=== PATIENT | female | born 1990 | race Caucasian/White ===

== ENCOUNTER → 2016-11-16 | Outpatient (CLI) | payer OTHER ==
[~2016-11-16] MED LIST: BCPILLS PO; ONDA4TAB10 SL
[2016-11-18 15:25] LABS: CHLAMYDIA TRACH RNA*** NOT DETECTED (NOT DETECTED); GC (NEIS GONORRHOEAE)RNA** NOT DETECTED (NOT DETECTED)
== END | disposition home or self-care (01) ==
LOC: C.LABSPEC 11:29
PROVIDERS: ATTEND Physician Assistant
DX: Z11.3 Encounter for screening for infections with a predominantly sexual mode of transmission (principal)

== ENCOUNTER → 2016-11-16 | Outpatient (CLI) | payer OTHER | END | disposition home or self-care (01) | LOC: C.PAPS 08:23 | PROVIDERS: ATTEND Physician Assistant | DX: Z01.419 Encounter for gynecological examination (general) (routine) without abnormal findings (principal) ==

== ENCOUNTER → 2017-10-18 | Outpatient (CLI) | payer OTHER ==
[~2017-10-18] MED LIST changes: -ONDA4TAB10 SL
[2017-10-18 10:47] LABS: BASO % 0.4 %; BASO ABS # 0.04 K/uL (0-0.2); EOS % 1.1 %; EOS ABS # 0.11 K/uL (0-0.5); HEMATOCRIT 41.9 % (37-47); HEMOGLOBIN 13.8 g/dL (12.0-16.0); IG# 0.01 K/uL (0.00-0.02); LYMPH % 38.4 %; MEAN CELL VOLUME 86.4 fL (80-100); MEAN CORPUSCULAR HEMOGLOBIN 28.5 pg (25-34); MEAN CORPUSCULAR HGB CONC 32.9 g/dl (32-36); MEAN PLATELET VOLUME 11.2 fL (7.4-10.4); MONO % 6.5 %; MONO ABS # 0.63 K/uL (0.11-0.59); NEUT % 53.5 %; NEUT ABS # 5.14 K/uL (1.4-6.5); PLATELET COUNT 281 K/uL (130-400); RED CELL DISTRIBUTION WIDTH SD 41.1 fL (36.4-46.3); WHITE BLOOD COUNT 9.63 K/uL (4.8-10.8)
[2017-10-18 11:19] LABS: ALBUMIN 3.6 gm/dl (3.4-5.0); ALKALINE PHOSPHATASE 56 U/L (45-117); ALT/SGPT 14 U/L (12-78); BLOOD UREA NITROGEN 14 mg/dl (7-18); CALCIUM 9.3 mg/dl (8.5-10.1); CARBON DIOXIDE 25 mmol/L (21-32); CHOLESTEROL 183 mg/dl (0-200); CREATININE 0.76 mg/dl (0.60-1.20); GLUCOSE 98 mg/dl (70-99); POTASSIUM 3.9 mmol/L (3.5-5.1); SODIUM 136 mmol/L (136-145); TOTAL PROTEIN 7.3 gm/dl (6.4-8.2)
[2017-10-18 11:30] LABS: AST/SGOT 12 U/L (15-37); LDL CHOLESTEROL CALCULATED 81 mg/dl
== END | disposition home or self-care (01) ==
LOC: C.LABBC 08:17
PROVIDERS: ATTEND Physician Assistant Medical
DX: G43.009 Migraine without aura, not intractable, without status migrainosus (principal)

== ENCOUNTER → 2017-10-19 | Outpatient (CLI) | payer OTHER ==
[~2017-10-19] MED LIST changes: +OPTIRAY 320 IV PRN
--- NOTE | 2017-10-19 16:17 | DIAGNOSTIC IMAGING REPORT ---
HEAD COMBO CLINICAL HISTORY: Left sided headaches. COMPARISON STUDY: No previous studies for comparison. TECHNIQUE: Axial images of the head were obtained before and after intravenous administration of 93 cc Optiray 320 IV. FINDINGS: No acute intracranial hemorrhage, midline shift or mass effect is present. A 1.4 cm oval shaped CSF density focus within the medial right temporal lobe likely reflects a prominent perivascular space. Ventricular system is normal. Basilar cisterns are patent. There are no extra-axial collections. No enhancing lesions are present. There is no pathologic enhancement. There are no significant calvarial abnormalities. Visualized portions of the sinuses and mastoid air cells are clear. IMPRESSION: 1. No acute intracranial findings. 2. No enhancing intracranial mass. No pathologic enhancement. 3. 1.4 cm CSF attenuation focus within the medial right temporal lobe which likely reflects a prominent perivascular space and is of doubtful significance. Electronically signed by: Stefan Ballard M.D. 10/19/2017 4:16 PM Dictated Date/Time: 10/19/2017 4:08 PM
--- NOTE | 2017-10-19 16:20 | DIAGNOSTIC IMAGING REPORT ---
SINUS CT WITHOUT CONTRAST CLINICAL HISTORY: Headache. Sinus congestion. COMPARISON STUDY: None. Technique: Helical axial images of the sinuses were obtained without IV contrast. Coronal reformats were viewed. A dose lowering technique was utilized adhering to the principles of ALARA. CT DOSE: 253.14 mGycm FINDINGS: The mastoid air cells are clear. There is no fluid within the middle ears. Orbital floors are intact. No mass is present within the nasal cavity or the sinuses. The major drainage pathways are patent. The frontal sinuses are clear. There is minimal mucosal thickening of the left maxillary sinus. The remainder of the sinuses are clear. There are no air-fluid levels. IMPRESSION: 1. Essentially clear sinuses. Minimal mucosal thickening of the left maxillary sinus. No evidence for acute sinusitis. Patent major drainage pathways. 2. Mild leftward deviation of the nasal septum with spur formation. Electronically signed by: Stefan Ballard M.D. 10/19/2017 4:18 PM Dictated Date/Time: 10/19/2017 4:16 PM
--- NOTE | 2017-10-19 16:24 | DIAGNOSTIC IMAGING REPORT ---
CT OF THE NECK WITH CONTRAST CLINICAL HISTORY: Left-sided headache and neck discomfort. Lymphadenopathy. COMPARISON STUDY: No previous studies for comparison. TECHNIQUE: Axial images of the neck were obtained following intravenous injection of 93 cc Optiray 320 IV. FINDINGS: No enlarged cervical lymph nodes are noted. The epiglottis is normal. Several tiny subcentimeter hypodense thyroid nodules measure up to 5 mm. No mucosal lesion is identified by CT. The parotid and submandibular glands are normal. No suspicious osseous lesions are present. Lung apices are clear. No mass within the neck is noted. Major vasculature of the neck appears patent. IMPRESSION: 1. No cervical lymphadenopathy or mass identified. 2. No acute abnormality within the neck by CT. Electronically signed by: Stefan Ballard M.D. 10/19/2017 4:23 PM Dictated Date/Time: 10/19/2017 4:19 PM
== END | disposition home or self-care (01) ==
LOC: C.CTS 14:49
PROVIDERS: ATTEND Physician Assistant Medical
DX: G43.009 Migraine without aura, not intractable, without status migrainosus (principal); R09.81 Nasal congestion; R51 Headache; R59.1 Generalized enlarged lymph nodes